=== PATIENT | female | born 1965 | race Caucasian/White ===

== ENCOUNTER → 2017-05-16 | Outpatient (CLI) | payer OTHER | LOC: CIMAGING 08:00 | PROVIDERS: ATTEND Internal Medicine | DX: Z12.31 Encounter for screening mammogram for malignant neoplasm of breast (principal) | CPT/HCPCS: G0202 ==

== ENCOUNTER → 2018-05-16 | Outpatient (CLI) | payer OTHER | LOC: CIMAGING 08:02 | PROVIDERS: ATTEND Internal Medicine | DX: Z12.31 Encounter for screening mammogram for malignant neoplasm of breast (principal) ==

== ENCOUNTER → 2018-06-01 | Outpatient (CLI) | payer OTHER | LOC: CIMAGING 13:01 | PROVIDERS: ATTEND Internal Medicine | DX: N63.24 Unspecified lump in the left breast, lower inner quadrant (principal); R92.0 Mammographic microcalcification found on diagnostic imaging of breast | CPT/HCPCS: 76641-PO ==

== ENCOUNTER → 2018-06-05 | Day surgery (SDC) | payer OTHER ==
[~2018-06-05] MED LIST: BUPIVACAINE 0.5% 30 ML SDV ONE; LIDOCAINE 1% 300 MG/30 ML SDV ONE; THROMBIN (BOVINE) 5,000 UNIT VIAL TP ONE
== END | disposition home or self-care (01) ==
LOC: FIMAGING 07:28
PROVIDERS: ATTEND Internal Medicine
PROC: 0HBU3ZX Excision of Left Breast, Percutaneous Approach, Diagnostic (ICD-10-PCS; principal; 2018-06-05)
DX: D05.82 Other specified type of carcinoma in situ of left breast (principal)

== ENCOUNTER 2018-06-29 07:16 | Day surgery (SDC) | payer OTHER ==
[2018-06-29] MEDS ORDERED: ceFAZolin 2 GM/DEXTROSE 100 ML IV ONE (09:24)
[2018-06-29] MEDS ORDERED: LR 1,000 ML IV ONE (09:25)
[2018-06-29] MEDS ORDERED: LIDOCAINE 1% 300 MG/30 ML SDV ONE ×2 (09:45→14:35)
[2018-06-29] MEDS ORDERED: MIDAZOLAM 2 MG/2 ML VIAL IVP ONE (13:35)
--- NOTE | 2018-06-29 13:35 | PDANEPAE ---
ANE History of Present Illness here for lumpectomy ANE Past Medical History - Cardiovascular History Hx Hypertension: No Hx Arrhythmias: Yes Hx Chest Pain: No Hx Coronary Artery / Peripheral Vascular Disease: Yes Hx CHF / Valvular Disease: No Hx Palpitations: Yes Cardiovascular History Comment: BIGEMINAL RHYTHM & PACs. RUNS LOW BP. MTHFR CLOTTING DISORDER. HYPERLIPIDEMIA - Pulmonary History Hx COPD: No Hx Asthma/Reactive Airway Disease: No Hx Recent Upper Respiratory Infection: No Hx Oxygen in Use at Home: No Hx Sleep Apnea: No Sleep Apnea Screening Result - Last Documented: Negative - Neurologic History Hx Cerebrovascular Accident: No Hx Seizures: No Hx Dementia: No - Endocrine History Hx Diabetes: Yes Endocrine History Comment: HYPOTHYROID - Renal History Hx Renal Disorders: No - Liver History Hx Hepatic Disorders: No - Neurological & Psychiatric Hx Hx Neurological and Psychiatric Disorders: No - Cancer History Hx Cancer: Yes Cancer History Comment: BREAST - Congenital Disorder History Hx Congenital Disorders: No - GI History Hx Gastrointestinal Disorders: No - Other Health History Other Health History: NEG - Chronic Pain History Chronic Pain: No - Surgical History Prior Surgeries: RT ELBOW TENDON/LIGAMENT REPAIR 02/2017. LT HIP SCOPE 2016. C SECTIONS. ANKLE R ANE Review of Systems Review of systems is: negative Review of Systems: - Exercise capacity Exercise capacity: >=4 METS METS (RN): 5 METS ANE Patient History - Allergies Allergies/Adverse Reactions: bupropion [From Wellbutrin] Allergy (Verified 06/28/18 12:17) CHEST PAIN fluoxetine [From Prozac] Allergy (Verified 06/28/18 12:17) INSOMNIA - Home Medications Home medications: home medication list seen and reviewed Home Medications: Atorvastatin Calcium HS 02/14/16 [Last Taken 06/28/18] Synthroid DAILY 02/14/16 [Last Taken 06/29/18] Ibuprofen PRN 06/28/18 [Last Taken Unknown] Xanax PRN 06/28/18 [Last Taken 06/28/18] Zantac PRN 06/28/18 [Last Taken 06/29/18] - NPO status NPO Status: no food or drink >8 hours NPO Since - Liquids (Date): 06/29/18 NPO Since - Liquids (Time): 07:00 NPO Since - Solids (Date): 06/28/18 NPO Since - Solids (Time): 20:00 - Smoking Hx Smoking Status: Never smoked - Family Anes Hx Family Hx Anesthesia Complications: NEG ANE Labs/Vital Signs - Vital Signs Vital Signs: reviewed preoperatively; see RN documention for details Blood Pressure: 142/82 Heart Rate: 60 Respiratory Rate: 16 O2 Sat (%): 99 Height: 160.02 cm Weight: 54.431 kg ANE Physical Exam - Airway Neck exam: FROM Mallampati Score: Class 1 - Pulmonary Pulmonary: no rales or rhonchi - Cardiovascular Cardiovascular: regular rate and rhythym - ASA Status ASA Status: II ANE Anesthesia Plan Anesthesia Plan: GA with mask
--- NOTE | 2018-06-29 14:26 | PDHPUP ---
History & Physical Update H&P update statement: This history and physical update is based on an assessment of the patient which was completed after admission or registration (within 24 hours), but prior to the surgery/procedure. H&P update: H&P reviewed & patient examined, no change in patient's condition since H&P completed
[2018-06-29] MEDS ORDERED: BUPIVACAINE/EPI 0.25% 30 ML SDV ONE (14:34)
[2018-06-29] MEDS ORDERED: SODIUM BICARBONATE 50 MEQ/50 ML SYR ONE (14:35)
[2018-06-29] MEDS ORDERED: PROPOFOL/EMULSION 500 MG/50 ML BOTTLE IV ONE (14:47)
[2018-06-29] MEDS ORDERED: NS 500 ML IV PRN (14:53)
[2018-06-29] MEDS ORDERED: PROMETHAZINE HCL 25 MG/ML INJ IVP PRN (14:53)
[2018-06-29] MEDS ORDERED: ALBUTEROL 3 ML DEYVIAL IH PRN (14:53)
[2018-06-29] MEDS ORDERED: DEXAMETHASONE 4 MG/ML VIAL IVP PRN (14:53)
[2018-06-29] MEDS ORDERED: fentaNYL 100 MCG/2 ML INJ IVP PRN (14:53)
[2018-06-29] MEDS ORDERED: HYDROmorphONE/DILAUDID 2 MG/ML INJ IVP PRN (14:53)
[2018-06-29] MEDS ORDERED: NALOXONE HCL 0.4 MG/ML INJ IVP PRN (14:53)
[2018-06-29] MEDS ORDERED: ONDANSETRON 4 MG/2 ML VIAL IVP PRN (14:53)
[2018-06-29] MEDS ORDERED: LR 500 ML IV PRN (14:53)
[2018-06-29] MEDS ORDERED: fentaNYL 100 MCG/2 ML INJ ONE (15:03)
[2018-06-29] MEDS ORDERED: PROPOFOL 200 MG/20 ML VIAL ONE ×2 (15:36)
[2018-06-29] MEDS ORDERED: ONDANSETRON DISINTEGRATING 4 MG TAB PO PRN (16:10)
--- NOTE | 2018-06-29 16:10 | POSTOPPROG ---
Post Op Note Date of Operation: 06/29/18 Surgeon: Desmond Child (, FACS) Anesthesiologist: Prince Quigley MD Anesthesia: Other (Specify) (IV General) Pre-op Diagnosis: left breast DCIS Post-op Diagnosis: same Procedure: left partial mastectomy/immediate reconstruction with adjacent tissue trans Findings: specimen mammogram confirmed clip/calcifications Inf/Abcess present in the surg proc area at time of surgery?: No EBL: Minimal (25ml) Specimen(s): left partial mastectomy, additional inferior/anterior margins
[2018-06-29] MEDS ORDERED: IBUPROFEN 600 MG TAB PO PRN (16:12)
[2018-06-29] MEDS ORDERED: OXYCODONE/APAP 5/325 TAB ONE (16:41)
[2018-06-29] MEDS: OXYCODONE/APAP 5/325 TAB PO PRN ×2 (16:43→17:31)
[2018-06-29 17:47] VITALS: BP 142/87
--- NOTE | 2018-06-29 19:03 | POSTANESTH ---
Post Anesthetic Evaluation Cardiovascular Status: Normal, Stable Respiratory Status: Normal, Stable Level of Consciousness/Mental Status: Can Participate in Eval Pain Control: Adequate, Prn Tx Ordered Nausea/Vomiting Control: Adequate, Prn Tx Ordered Complications Possibly Related to Anesthesia: None Noted
[2018-06-29] MEDS ORDERED: SENNOSIDES/DOCUSATE SODIUM TAB PO SCH (21:00)
--- NOTE | 2018-06-30 05:11 | GOP ---
DATE OF OPERATION: SURGEON: Desmond Child MD, FACS ANESTHESIA: Intravenous, general. ANESTHESIOLOGIST: Prince Quigley MD. PREOPERATIVE DIAGNOSIS: Left breast ductal carcinoma in situ, status post core needle biopsy. POSTOPERATIVE DIAGNOSIS: Left breast ductal carcinoma in situ, status post core needle biopsy. PROCEDURE PERFORMED: 1. Left partial mastectomy. 2. Immediate reconstruction with adjacent tissue transfer. FINDINGS: Previously deployed clip and residual calcifications confirmed within the primary specimen by specimen mammography. Additional inferior and anterior margins submitted for permanent section. ESTIMATED BLOOD LOSS: 25 mL. DESCRIPTION OF PROCEDURE: After informed consent was obtained, the patient was brought to the operating room, placed under general anesthesia. The left breast was prepped and draped in the usual fashion. Before proceeding, a time- out and identification of the patient were performed. The patient had a Kopan wire entering the breast at the medial aspect directed laterally and posteriorly. Intraoperative review of mammography showed the wire to be closely positioned to the clip and residual calcifications. A radial incision was selected and marked on the skin with a marking pen. The skin was infiltrated with 0.25% Marcaine and was incised with a scalpel. Deep subcutaneous tissues were dissected sharply. Hemostasis was secured with cautery. The wire was mobilized into the incision, and the breast tissue around the shaft and tip of the wire was excised for a distance of approximately 15 mm in all directions down to the chest wall including the pectoralis fascia. After this was excised, it was inspected and the lumpectomy noted to be somewhat eccentric and closest to the inferior and anterior margins. The specimen was inked with a margin-marker kit, separately designating the superior, inferior, medial, lateral, anterior, and posterior margins. The specimen was submitted for a specimen mammogram. While we were waiting for the results, I re-excised the inferior and anterior margins and submitted these as separate final margins with appropriate anchor orientation. Hemostasis was secured within the cavity. Circumferential to the cavity, the edges were marked with small titanium clips for potential partial breast radiation. Deep subcutaneous plane was mobilized cephalad, inferiorly, and medially to allow an adjacent tissue transfer. These flaps were mobilized and approximated over the cavity with interrupted 3-0 Vicryl sutures. Deep subcutaneous tissues were closed with 3-0 Monocryl suture. Skin was closed with 4-0 Monocryl suture in a subcuticular fashion. Topical Dermabond was applied. The patient was returned extubated to the recovery room in satisfactory condition. COUNTS: Needle, sponge, and instrument counts were correct. COMPLICATIONS: None. /[id number]/MODL MTDD
== END 2018-06-29 18:20 | disposition home or self-care (01) ==
LOC: FSGY 07:16
PROVIDERS: ATTEND Surgery
DX: D05.12 Intraductal carcinoma in situ of left breast (principal); E78.5 Hyperlipidemia, unspecified; E03.9 Hypothyroidism, unspecified
CPT/HCPCS: J0690; J2704; J3010

== ENCOUNTER → 2018-11-29 | Outpatient (CLI) | payer OTHER | LOC: CIMAGING 10:12 | PROVIDERS: ATTEND Nurse Practitioner | DX: R05 Cough (principal); R91.8 Other nonspecific abnormal finding of lung field; Z85.3 Personal history of malignant neoplasm of breast | CPT/HCPCS: 71046-PO ==

== ENCOUNTER → 2018-12-19 | Outpatient (CLI) | payer OTHER | LOC: CIMAGING 11:22 ==